=== PATIENT | female | born 1970 | race Caucasian/White ===

== ENCOUNTER → 2017-06-12 | Outpatient (CLI) | payer BC ==
--- NOTE | 2017-06-12 11:59 | Diagnostic Imaging Report ---
PROCEDURE: Frontal and lateral views of the chest. COMPARISON: None. INDICATIONS: LOW BACK PAIN, HIP PAIN, ARTHRITIS FINDINGS: Lines/tubes: None. Lungs: The lungs are well inflated and clear. There is no evidence of pneumonia or pulmonary edema. Pleura: There is no pleural effusion or pneumothorax. Heart and mediastinum: The heart and the mediastinum are normal. Bones: No acute bony abnormality. IMPRESSION: No acute cardiopulmonary disease. Dictated by: Tom Wallace M.D. on 06/12/2017 at 11:59 Electronically approved by: Tom Wallace M.D. on 06/12/2017 at 11:59
--- NOTE | 2017-06-12 12:00 | Diagnostic Imaging Report ---
PROCEDURE:HIP RIGHT 2-3 VW (+/- PELVIS) COMPARISON:None. INDICATIONS:HIP PAIN, ARTHRITIS FINDINGS: BONES: Normal mineralization. No acute fracture or dislocation. Joint spaces are within normal limits. SOFT TISSUES:Negative. OTHER:Negative. CONCLUSION: Normal right hip. Dictated by: Tom Wallace M.D. on 06/12/2017 at 12:00 Electronically approved by: Tom Wallace M.D. on 06/12/2017 at 12:00
--- NOTE | 2017-06-12 12:01 | Diagnostic Imaging Report ---
PROCEDURE: L-SPINE COMPLETE, 5 views including bilateral obliques COMPARISON: None. INDICATIONS: LOW BACK PAIN, ARTHRITIS FINDINGS: The lumbar spine (5 nonrib-bearing lumbar-type vertebral bodies) is in anatomic alignment without evidence of fracture, spondylolisthesis, or spondylolysis. Vertebral body heights and disc spaces are maintained. Mild multilevel facet arthrosis with moderate L4-5 and L5-S1. Mild bilateral SI joint sclerosis. The paraspinal soft tissues are normal. Right quadrant cholecystectomy clips. CONCLUSION: Mild degenerative changes related to facet arthrosis. Dictated by: Tom Wallace M.D. on 06/12/2017 at 12:01 Electronically approved by: Tom Wallace M.D. on 06/12/2017 at 12:01
== END ==
LOC: RAD 11:13
PROVIDERS: ATTEND Emergency Medicine
DX: J20.9 Acute bronchitis, unspecified (principal); M25.551 Pain in right hip; M54.5 Low back pain
CPT/HCPCS: 71046; 72110

== ENCOUNTER 2020-09-15 14:40 | Inpatient (IN) | payer BC, OTHER ==
[~2020-09-15] VITALS: Ht 160 cm; Wt 107.0 kg
[2020-09-15] MEDS ORDERED: ASPIRIN 81 MG CHEW TAB PO STA (15:01)
[2020-09-15 15:11] LABS: BASOPHILS # (AUTO) 0.1 (0.0-0.1); BASOPHILS % 0.9 % (0.0-1.0); EOSINOPHILS # (AUTO) 0.1 (0.0-0.4); EOSINOPHILS % 1.1 % (0.0-6.0); HEMATOCRIT 38.8 % (34.2-44.1); HEMOGLOBIN 12.5 g/dL (12.0-16.0); MEAN CORPUSCULAR HEMOGLOBIN 27.2 pg (28-32); MEAN CORPUSCULAR HGB CONC 32.2 g/dL (31-35); MEAN CORPUSCULAR VOLUME 84.3 fL (81-99); MONOCYTES # (AUTO) 0.7 (0.2-0.8); MONOCYTES % 9.1 % (4.4-11.3); NEUTROPHILS # (AUTO) 4.7 (2.1-6.9); NEUTROPHILS % 62.6 % (38.7-80.0); PLATELET COUNT 284 x10e3/uL (140-360); RED CELL DISTRIBUTION WIDTH 14.8 % (11.7-14.4)
[2020-09-15 15:24] LABS: ALBUMIN/GLOBULIN RATIO 1.3 (0.8-2.0); ANION GAP 16.1 mmol/L (8-16); CALCIUM 9.4 mg/dL (8.4-10.2); CREATININE, SERUM 1.26 mg/dL (0.57-1.11); MAGNESIUM 1.9 MG/DL (1.3-2.1); POTASSIUM 4.1 mmol/L (3.5-5.1)
[2020-09-15 15:30] LABS: CREATINE KINASE MB 1.3 ng/mL (0-5.0)
[2020-09-15] MEDS ORDERED: CLOPIDOGREL BISULFATE 75 MG TAB PO ONE (16:00)
[2020-09-15] MEDS ORDERED: MORPHINE SULFATE INJ 2 MG/ML SYR IV PRN (16:15)
[2020-09-15] MEDS ORDERED: NITROGLYCERIN 0.4 MG SUBL SL PRN (16:15)
[2020-09-15] MEDS ORDERED: ONDANSETRON HCL INJ 2MG/ML 2ML 2 MG/ML VIAL IV PRN (16:15)
[2020-09-15] MEDS: FAMOTIDINE 20 MG/2 ML VIAL IV SCH (16:39)
[2020-09-15 20:06] VITALS: BP 108/64
[2020-09-15 21:55] VITALS: BP 108/64
[2020-09-15 22:01] VITALS: BP 108/64
[2020-09-16] VITALS (7 sets, daily range): BP systolic 107–135; BP diastolic 57–86
[2020-09-16 05:30] LABS: BASOPHILS # (AUTO) 0.1 (0.0-0.1); BASOPHILS % 1.1 % (0.0-1.0); EOSINOPHILS # (AUTO) 0.1 (0.0-0.4); EOSINOPHILS % 1.4 % (0.0-6.0); HEMATOCRIT 34.8 % (34.2-44.1); HEMOGLOBIN 11.2 g/dL (12.0-16.0); LYMPHOCYTES # (AUTO) 2.1 (1.0-3.2); LYMPHOCYTES % 32.3 % (18.0-39.1); MEAN CORPUSCULAR HEMOGLOBIN 27.2 pg (28-32); MEAN CORPUSCULAR HGB CONC 32.2 g/dL (31-35); MEAN CORPUSCULAR VOLUME 84.5 fL (81-99); MONOCYTES # (AUTO) 0.6 (0.2-0.8); MONOCYTES % 8.8 % (4.4-11.3); NEUTROPHILS # (AUTO) 3.7 (2.1-6.9); NEUTROPHILS % 56.1 % (38.7-80.0); PLATELET COUNT 244 x10e3/uL (140-360); RED BLOOD COUNT 4.12 x10e6/uL (3.6-5.1); RED CELL DISTRIBUTION WIDTH 14.8 % (11.7-14.4)
[2020-09-16 05:55] LABS: POTASSIUM 3.6 mmol/L (3.5-5.1)
[2020-09-16 05:56] LABS: ALBUMIN 3.3 g/dL (3.5-5.0); ALBUMIN/GLOBULIN RATIO 1.3 (0.8-2.0); ANION GAP 12.6 mmol/L (8-16); CALCIUM 8.5 mg/dL (8.4-10.2); CHOL/HDL RATIO 4.4 (3.0-3.6)
[2020-09-16] MEDS: FAMOTIDINE 20 MG/2 ML VIAL IV SCH ×2 (06:00→17:02)
[2020-09-16 07:17] LABS: CREATINE KINASE MB 0.7 ng/mL (0-5.0)
[2020-09-16] MEDS: ASPIRIN 81 MG ENTERIC COATED PO SCH (08:52)
[2020-09-16 13:36] LABS: CREATINE KINASE MB 0.7 ng/mL (0-5.0)
[2020-09-16] MEDS: METOPROLOL SUCCINATE 25 MG TAB XL PO SCH (17:40)
[2020-09-16] MEDS: ENOXAPARIN SODIUM INJ 100 MG/ML SYR SC SCH (21:30)
[2020-09-16] MEDS: ATORVASTATIN 40 MG TAB PO SCH (21:30)
[2020-09-17] VITALS (7 sets, daily range): BP systolic 112–132; BP diastolic 64–83
[2020-09-17] MEDS: FAMOTIDINE 20 MG/2 ML VIAL IV SCH ×2 (05:56→16:55)
[2020-09-17] MEDS: ENOXAPARIN SODIUM INJ 100 MG/ML SYR SC SCH ×2 (09:00→20:38)
[2020-09-17] MEDS: METOPROLOL SUCCINATE 25 MG TAB XL PO SCH (09:00)
[2020-09-17] MEDS: ASPIRIN 81 MG ENTERIC COATED PO SCH (09:00)
[2020-09-17] MEDS: ATORVASTATIN 40 MG TAB PO SCH (20:36)
[2020-09-18] VITALS (7 sets, daily range): BP systolic 127–147; BP diastolic 72–112
[2020-09-18] MEDS: ACETAMINOPHEN 325 MG TAB PO PRN ×2 (00:09→20:25)
[2020-09-18] MEDS: FAMOTIDINE 20 MG/2 ML VIAL IV SCH ×2 (05:35→17:48)
[2020-09-18 06:52] LABS: BASOPHILS % 0.5 % (0.0-1.0); EOSINOPHILS # (AUTO) 0.1 (0.0-0.4); EOSINOPHILS % 1.7 % (0.0-6.0); HEMATOCRIT 33.8 % (34.2-44.1); HEMOGLOBIN 10.8 g/dL (12.0-16.0); LYMPHOCYTES # (AUTO) 1.8 (1.0-3.2); LYMPHOCYTES % 29.2 % (18.0-39.1); MEAN CORPUSCULAR HEMOGLOBIN 26.9 pg (28-32); MEAN CORPUSCULAR VOLUME 84.3 fL (81-99); MONOCYTES # (AUTO) 0.6 (0.2-0.8); MONOCYTES % 9.3 % (4.4-11.3); NEUTROPHILS # (AUTO) 3.6 (2.1-6.9); PLATELET COUNT 233 x10e3/uL (140-360); RED BLOOD COUNT 4.01 x10e6/uL (3.6-5.1); RED CELL DISTRIBUTION WIDTH 14.7 % (11.7-14.4)
[2020-09-18 07:05] LABS: ANION GAP 11.4 mmol/L (8-16); CALCIUM 8.6 mg/dL (8.4-10.2); CREATININE, SERUM 0.92 mg/dL (0.57-1.11); MAGNESIUM 1.8 MG/DL (1.3-2.1); PHOSPHORUS 4.7 MG/DL (2.3-4.7); POTASSIUM 3.4 mmol/L (3.5-5.1)
[2020-09-18 07:31] LABS: THYROID STIMULATING HORMONE 0.556 uIU/mL (0.350-4.940)
[2020-09-18] MEDS ORDERED: POTASSIUM CHLORIDE 20 MEQ TAB CR PO STA (08:14)
[2020-09-18] MEDS: METOPROLOL SUCCINATE 25 MG TAB XL PO SCH (09:10)
[2020-09-18] MEDS: ASPIRIN 81 MG ENTERIC COATED PO SCH (09:10)
[2020-09-18] MEDS: ENOXAPARIN SODIUM INJ 100 MG/ML SYR SC SCH (09:10)
[2020-09-18] MEDS ORDERED: HYDRALAZINE HCL 20 MG/ML VIAL IV PRN (09:15)
[2020-09-18] MEDS: ATORVASTATIN 40 MG TAB PO SCH (20:22)
[2020-09-19] VITALS (13 sets, daily range): BP systolic 111–143; BP diastolic 56–95
[2020-09-19] MEDS: FAMOTIDINE 20 MG/2 ML VIAL IV SCH (05:02)
[2020-09-19 05:17] LABS: BASOPHILS % 0.5 % (0.0-1.0); EOSINOPHILS # (AUTO) 0.1 (0.0-0.4); EOSINOPHILS % 1.4 % (0.0-6.0); HEMATOCRIT 34.4 % (34.2-44.1); HEMOGLOBIN 11.2 g/dL (12.0-16.0); LYMPHOCYTES # (AUTO) 1.9 (1.0-3.2); LYMPHOCYTES % 29.8 % (18.0-39.1); MEAN CORPUSCULAR HEMOGLOBIN 27.5 pg (28-32); MEAN CORPUSCULAR HGB CONC 32.6 g/dL (31-35); MEAN CORPUSCULAR VOLUME 84.5 fL (81-99); MONOCYTES # (AUTO) 0.7 (0.2-0.8); NEUTROPHILS # (AUTO) 3.6 (2.1-6.9); NEUTROPHILS % 57.1 % (38.7-80.0); PLATELET COUNT 234 x10e3/uL (140-360); RED BLOOD COUNT 4.07 x10e6/uL (3.6-5.1); RED CELL DISTRIBUTION WIDTH 14.7 % (11.7-14.4)
[2020-09-19 05:46] LABS: ANION GAP 12.7 mmol/L (8-16); CALCIUM 9.2 mg/dL (8.4-10.2); CREATININE, SERUM 0.83 mg/dL (0.57-1.11); POTASSIUM 3.7 mmol/L (3.5-5.1)
[2020-09-19 06:00] LABS: INR 0.94; PROTHROMBIN TIME 13.2 seconds (11.9-14.5)
[2020-09-19 06:12] LABS: CHOL/HDL RATIO 3.8 (3.0-3.6)
[2020-09-19] MEDS ORDERED: VERAPAMIL HCL 2.5 MG/ML 2 ML VIAL ONE (06:57)
[2020-09-19] MEDS ORDERED: HEPARIN SOD (PORCINE) 1000 UNIT/ML 30ML ONE (06:57)
[2020-09-19] MEDS ORDERED: SODIUM CHLORIDE 0.9% 1000ML 1,000 ML ONE (06:58)
[2020-09-19] MEDS ORDERED: HEPARIN SOD/SOD CHLORIDE 2,000 ML ONE (06:58)
[2020-09-19] MEDS ORDERED: MIDAZOLAM HCL 2 MG/2 ML VIAL ONE (06:58)
[2020-09-19] MEDS ORDERED: IOPAMIDOL 370 MG/ML 200 ML INFUS..BTL INJ ONE (06:58)
[2020-09-19] MEDS ORDERED: LIDOCAINE HCL 2% LOCAL 20 ML VIAL ONE (06:58)
[2020-09-19] MEDS ORDERED: NITROGLYCERIN/D5W 200 MCG/ML 250 ML ONE (06:58)
[2020-09-19] MEDS ORDERED: FENTANYL CITRATE/PF 100MCG/2 ML INJ ONE (06:58)
[2020-09-19] MEDS ORDERED: NITROGLYCERIN 0.4 MG SUBL ONE (07:41)
[2020-09-19] MEDS ORDERED: SODIUM CHLORIDE 0.9% 50ML 50 ML ONE (07:51)
[2020-09-19] MEDS ORDERED: ADENOSINE 3MG/1ML 30ML VIAL ONE (07:51)
[2020-09-19] MEDS: ASPIRIN 81 MG ENTERIC COATED PO SCH (09:00)
[2020-09-19] MEDS ORDERED: ASPIRIN EC81 MG PO (12:55)
[2020-09-19] MEDS ORDERED: TOPROL XL25 MG PO (12:55)
[2020-09-19] MEDS ORDERED: Atorvastatin PO (12:55)
[2020-09-19] MEDS ORDERED: ONDANSETRON HCL 4 MG ORAL DISINTEGRATING TAB PO PRN (13:45)
[2020-09-19] MEDS ORDERED: FAMOTIDINE 20 MG TAB PO SCH (16:30)
== END 2020-09-19 13:44 | disposition home or self-care (01) | DRG 287 ==
LOC: ER 15:15 → INTOOBSV 16:20 → ERHOLD 16:20 → MED/SURG3 18:15 → OBSVTOIN 09-17 12:02
PROVIDERS: ADMIT Internal Medicine; ATTEND Internal Medicine
PROC: 4A023N7 Measurement of Cardiac Sampling and Pressure, Left Heart, Percutaneous Approach (ICD-10-PCS; principal; 2020-09-19)
PROC: B2111ZZ Fluoroscopy of Multiple Coronary Arteries using Low Osmolar Contrast (ICD-10-PCS; 2020-09-19)
PROC: B2151ZZ Fluoroscopy of Left Heart using Low Osmolar Contrast (ICD-10-PCS; 2020-09-19)
PROC: 4A033BC Measurement of Arterial Pressure, Coronary, Percutaneous Approach (ICD-10-PCS; 2020-09-19)
DX: I25.110 Atherosclerotic heart disease of native coronary artery with unstable angina pectoris (principal); Z68.41 Body mass index [BMI] 40.0-44.9, adult; I10 Essential (primary) hypertension; E78.5 Hyperlipidemia, unspecified; E66.01 Morbid (severe) obesity due to excess calories; E87.6 Hypokalemia; J45.909 Unspecified asthma, uncomplicated; F41.9 Anxiety disorder, unspecified; K21.9 Gastro-esophageal reflux disease without esophagitis; Z90.49 Acquired absence of other specified parts of digestive tract; F17.200 Nicotine dependence, unspecified, uncomplicated; Z72.89 Other problems related to lifestyle; Z82.49 Family history of ischemic heart disease and other diseases of the circulatory system; Z98.84 Bariatric surgery status; D64.9 Anemia, unspecified; Z20.822 Contact with and (suspected) exposure to COVID-19
CPT/HCPCS: 36415; 71045; 76937; 78452; 80048; 80053; 80061; 82550; 82553; 82948; 83735; 83880; 84100; 84443; 84484; 85025; 85610; 85730; 93005; 93017; 93306; 93458; 93571; 99152; 99153; 99284; A9502; C1753; C1887; G0378; J0153; J1644; J1650; J2001; J2250; J3010; J7030; Q9967; U0002